=== PATIENT | male | born 1940 ===

== ENCOUNTER 2017-09-25 08:32 | Emergency (ER) | payer OTHER ==
[2017-09-25 08:42] VITALS: RESP 20; TEMP 98.2
[2017-09-25 09:34] LABS: BASO % 0.4 % (0.0-2.0); EOS # 0.2 K/uL (0.0-0.7); EOS % 3.8 % (0.0-4.0); HEMATOCRIT 37.9 % (35.0-51.0); LYMPH # 1.1 K/uL (1.0-4.3); LYMPH % 18.5 % (20.0-40.0); MEAN CELL VOLUME 91.2 fL (80.0-94.0); MEAN CORPUSCULAR HEMOGLOBIN 29.6 pg (27.0-31.0); MEAN CORPUSCULAR HGB CONC 32.4 g/dL (33.0-37.0); MEAN PLATELET VOLUME 7.5 fL (7.2-11.7); MONO # 0.5 K/uL (0.0-0.8); MONO % 8.4 % (0.0-10.0); RED CELL DISTRIBUTION WIDTH 13.1 % (11.5-14.5)
--- NOTE | 2017-09-25 09:38 | C.PDOC ---
History Of Present Illness 77 year old male, homeless, brought to ED by neighbor because pt is homeless and not take care of himself. As per neighbor, pt was incontinent of urine and feces. Pt complaints of large scrotal hernia. Pt has been seen multiple times in the past for similar symptoms. Denies fever, or any other complaints at this time. Time Seen by Provider: 09/25/17 09:10 Chief Complaint (Nursing): Male Genitourinary History Per: Patient History/Exam Limitations: no limitations Onset/Duration Of Symptoms: Days Current Symptoms Are (Timing): Still Present Severity: Mild Quality Of Discomfort: Aching Recent travel outside of the [place]: No Past Medical History Reviewed: Historical Data, Nursing Documentation, Vital Signs Vital Signs: Last Vital Signs Temp 98.2 F 09/25/17 11:45 Pulse 70 09/25/17 11:45 Resp 20 09/25/17 11:45 BP 140/75 09/25/17 11:45 Pulse Ox 95 09/25/17 16:53 - Medical History PMH: Denies: Diabetes, HIV, HTN, Chronic Kidney Disease, Seizures, Sexually Transmitted Disease - [facility] Procedures DETOXIFICATION SERVICES FOR SUBSTANCE ABUSE TREATMENT (07/27/16) Family History: States: Unknown Family Hx - Social History Hx Alcohol Use: Yes Hx Substance Use: No - Immunization History Hx Tetanus Toxoid Vaccination: No Hx Influenza Vaccination: No Hx Pneumococcal Vaccination: No Review Of Systems Except As Marked, All Systems Reviewed And Found Negative. Constitutional: Negative for: Fever, Chills Cardiovascular: Negative for: Chest Pain Respiratory: Negative for: Shortness of Breath Gastrointestinal: Negative for: Nausea, Vomiting, Abdominal Pain, Diarrhea Genitourinary: Positive for: Incontinence, Scrotal Pain. Negative for: Dysuria , Frequency, Hematuria, Penile Discharge Musculoskeletal: Negative for: Back Pain Physical Exam - Physical Exam Appears: Non-toxic, No Acute Distress Skin: Normal Color, Warm, Dry Head: Atraumatic, Normacephalic Eye(s): bilateral: Normal Inspection Oral Mucosa: Moist Chest: Symmetrical Cardiovascular: Rhythm Regular, No Murmur Respiratory: Normal Breath Sounds, No Rales, No Rhonchi, No Wheezing Gastrointestinal/Abdominal: Soft, No Tenderness Male Genital: Testicular Swelling (enlarged testicles), Other (bilateral scrotal hernia) Extremity: Normal ROM Neurological/Psych: Oriented x3, Normal Speech Gait: Steady ED Course And Treatment - Laboratory Results Result Diagrams: 09/25/17 09:28 09/25/17 09:28 Lab Interpretation: Normal O2 Sat by Pulse Oximetry: 95 Pulse Ox Interpretation: Normal - Other Rad No standard instances X-Ray: Viewed By Me, Read By Radiologist Interpretation: FINDINGS: CHEST: No evidence of acute infiltrate or effusion. Lung mosquera appear slightly overinflated. No effusion or apparent pneumothorax. ABDOMEN AND PELVIS: No gross free intraperitoneal air seen under the diaphragmatic surfaces. . No evidence of acute mechanical bowel obstruction. Moderate amount of stool seen throughout the large bowel consistent with fecal retention/constipation. . Hyperdense fecal material is present within the descending and sigmoid colon Note made of what appears to represent large left inguinal hernia containing distal descending/sigmoid colon. 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 There is a mild levoscoliosis centered at the L2-L3 level. IMPRESSION: No acute infiltrates. Findings consistent with constipation. There is also an apparent large left inguinal hernia. Note that this report was placed in PA review folder for followup Progress Note: Blood work, UA ordered and reviewed. Patient provided with information regarding homeless shelters. Discharged in stable condition. Advised to follow up with clinic for further evaluation Reassessment Condition: Unchanged Disposition Counseled Patient/Family Regarding: Studies Performed, Diagnosis, Need For Followup - Disposition Referrals: [facility] [Outside] [place] [facility] [employer] [Outside] Disposition: HOME/ ROUTINE Disposition Time: 11:45 Condition: STABLE Additional Instructions: Follow up at clinic for further evaluation Return to ED if any increase symptoms Call homeless shelters for availability Instructions: Weakness (ED) Forms: [employer] (Khmer) Print Language: MALAY - POA Present On Arrival: None - Clinical Impression Clinical Impression: Weakness, Homeless - 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 - Scribe Statement The provider has reviewed the documentation as recorded by the German Quinones All medical record entries made by the Patriciaibshellie were at my direction and personally dictated by me. I have reviewed the chart and agree that the record accurately reflects my personal performance of the history, physical exam, medical decision making, and the department course for this patient. I have also personally directed, reviewed, and agree with the discharge instructions and disposition.
[2017-09-25 09:57] LABS: ALB/GLOB RATIO 1.2 (1.0-2.1); ALCOHOL SERUM < 10 mg/dl (0-10); ALKALINE PHOSPHATASE 73 U/L (38-126); ALT/SGPT 36 U/L (21-72); AST/SGOT 20 U/L (17-59); BILIRUBIN,TOTAL 0.7 mg/dL (0.2-1.3); BLOOD UREA NITROGEN 8 mg/dL (9-20); CALCIUM 7.9 mg/dl (8.6-10.4); CARBON DIOXIDE 32 mmol/L (22-30); CHLORIDE 102 mmol/L (98-107); GFR AFRICAN-AMERICAN > 60; GLUCOSE,RANDOM 101 mg/dL (75-110); POTASSIUM 3.7 mmol/L (3.6-5.2); SODIUM 137 mmol/L (132-148); TOTAL PROTEIN 6.4 g/dL (6.3-8.3)
--- NOTE | 2017-09-25 10:22 | RAD ---
PROCEDURE: Radiographs of the chest and abdomen (obstructive series) HISTORY: Abd Pain COMPARISON: No prior. TECHNIQUE: AP radiograph of the chest, with upright and supine radiographs of the abdomen. FINDINGS: CHEST: No evidence of acute infiltrate or effusion. Lung mosquera appear slightly overinflated. No effusion or apparent pneumothorax ABDOMEN AND PELVIS: No gross free intraperitoneal air seen under the diaphragmatic surfaces. . No evidence of acute mechanical bowel obstruction. Moderate amount of stool seen throughout the large bowel consistent with fecal retention/constipation. . Hyperdense fecal material is present within the descending and sigmoid colon Note made of what appears to represent large left inguinal hernia containing distal descending/sigmoid colon. 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 There is a mild levoscoliosis centered at the L2-L3 level. IMPRESSION: No acute infiltrates. Findings consistent with constipation. There is also an apparent large left inguinal hernia. Note that this report was placed in PA review folder for followup
[2017-09-25 10:27] LABS: RBC URINE 1 /hpf (0-3); URINE BILIRUBIN NEGATIVE (NEGATIVE); URINE BLOOD NEGATIVE (NEGATIVE); URINE COLOR Yellow (YELLOW); URINE GLUCOSE (UA) NORMAL (Normal); URINE KETONE NEGATIVE (NEGATIVE); URINE LEUKOCYTE ESTERASE NEG Leu/uL (Negative); URINE PROTEIN NEGATIVE (NEGATIVE); URINE UROBILINOGEN NORMAL mg/dL (0.2-1.0); WBC URINE 1 /hpf (0-5)
[2017-09-25 11:46] VITALS: BP 140/75; PULSE 70; O2SAT 95
== END 2017-09-25 11:50 | disposition home or self-care (01) ==
LOC: C.ER 08:32
DX: R53.1 Weakness (principal); Z59.0 Homelessness

== ENCOUNTER 2018-02-11 06:38 | Emergency (ER) | payer OTHER ==
[2018-02-11 06:38] VITALS: BMI 23.8
--- NOTE | 2018-02-11 08:06 | C.PDOC ---
History Of Present Illness 77 y/o male with Colostomy bag placed presents to ED with c/o back pain and pain at site of colostomy bag for 1 week. Patient is a known homeless and was seen at [facility] yesterday 3 times with same complaints. Patient also complains of painful bump on anus worse when sitting. Patient denies fever, cough, nausea, vomiting or any other complaints at this time. Time Seen by Provider: 02/11/18 07:31 Chief Complaint (Nursing): Abdominal Pain History Per: Patient, Work Order Clerk History/Exam Limitations: language barrier Onset/Duration Of Symptoms: Days Current Symptoms Are (Timing): Still Present Past Medical History Reviewed: Historical Data, Nursing Documentation, Vital Signs Vital Signs: Last Vital Signs Temp 98.0 F 02/11/18 07:22 Pulse 67 02/11/18 07:22 Resp 17 02/11/18 07:22 BP 111/55 L 02/11/18 07:22 Pulse Ox 96 02/11/18 09:54 - Medical History PMH: Benign Prostatic Hyperplasia Surgical History: No Surg Hx Other Surgeries: Colostomy bag and Mucus Fistula - [facility] Procedures BYPASS SIGMOID COLON TO CUTANEOUS, OPEN APPROACH (12/10/17) DETOXIFICATION SERVICES FOR SUBSTANCE ABUSE TREATMENT (07/27/16) DRAINAGE OF ANUS, OPEN APPROACH (12/10/17) DRAINAGE OF RECTUM, OPEN APPROACH (12/10/17) EXCISION OF SIGMOID COLON, ENDO, DIAGN (12/10/17) EXCISION OF SIGMOID COLON, OPEN APPROACH (12/10/17) INTRODUCE LOCAL ANESTH IN PERIPH NRV, PLEXI, PERC (12/10/17) REPAIR SIGMOID COLON, OPEN APPROACH (12/10/17) TRANSFUSE NONAUT RED BLOOD CELLS IN PERIPH VEIN, PERC (12/10/17) Family History: States: No Known Family Hx - Social History Hx Tobacco Use: No Hx Alcohol Use: No Hx Substance Use: No - Immunization History Hx Tetanus Toxoid Vaccination: No Hx Influenza Vaccination: No Hx Pneumococcal Vaccination: No Review Of Systems Except As Marked, All Systems Reviewed And Found Negative. Musculoskeletal: Positive for: Back Pain Physical Exam - Physical Exam Appears: Non-toxic Skin: Warm, Dry, No Rash Head: Atraumatic, Normacephalic Oral Mucosa: Moist Neck: Normal ROM, Supple Cardiovascular: Rhythm Regular Respiratory: Normal Breath Sounds, No Rales, No Rhonchi, No Wheezing Gastrointestinal/Abdominal: Soft, No Tenderness, No Guarding, No Rebound, Other (Colostomy bag and Mucus fistula drainning ) Rectal: No Hemorrhoids, Other (Growth on left side of rectum) Back: Other (Lypoma on right upper back. Parathoracic tenderness) Neurological/Psych: Oriented x3, Normal Speech, Normal Cognition ED Course And Treatment - Laboratory Results Result Diagrams: 02/11/18 08:03 02/11/18 08:03 ECG: Interpreted By Me, Viewed By Me ECG Rhythm: Sinus Rhythm Rate From EC (BPM) O2 Sat by Pulse Oximetry: 96 (RA) Medical Decision Making Medical Decision Making: Assessment: Back pain Progress: D/w medical surgical tech obtained further history and state grown on rectum is chronic Patient d/c with instructed f.u to clinic Disposition Counseled Patient/Family Regarding: Studies Performed, Diagnosis, Need For Followup, Rx Given - Disposition Referrals: [facility] [Outside] Disposition: HOME/ ROUTINE Disposition Time: 09:52 Condition: STABLE Additional Instructions: follow up with your doctor in 2 days call to make an appointment take pain medication as prescribed return to ER if symptoms worsens or progress Prescriptions: traMADol [Ultram] 50 mg PO TID PRN #10 tab PRN Reason: Pain, Moderate (4-7) Instructions: Upper Back Pain Forms: Gen Discharge Inst Serbian, [facility] (Serbian) - Clinical Impression Clinical Impression: Back pain - Scribe Statement The provider has reviewed the documentation as recorded by the Patriciaibshellie Altman All medical record entries made by the Scribe were at my direction and personally dictated by me. I have reviewed the chart and agree that the record accurately reflects my personal performance of the history, physical exam, medical decision making, and the department course for this patient. I have also personally directed, reviewed, and agree with the discharge instructions and disposition.
[2018-02-11 08:10] LABS: BASO # 0.1 K/uL (0.0-0.2); BASO % 0.8 % (0.0-2.0); EOS # 0.7 K/uL (0.0-0.7); EOS % 9.4 % (0.0-4.0); HEMOGLOBIN 10.5 g/dL (12.0-18.0); LYMPH # 1.2 K/uL (1.0-4.3); LYMPH % 17.8 % (20.0-40.0); MEAN CELL VOLUME 87.8 fL (80.0-94.0); MEAN CORPUSCULAR HEMOGLOBIN 29.5 pg (27.0-31.0); MEAN CORPUSCULAR HGB CONC 33.6 g/dL (33.0-37.0); MEAN PLATELET VOLUME 8.2 fL (7.2-11.7); MONO # 0.6 K/uL (0.0-0.8); MONO % 8.8 % (0.0-10.0); NEUT # 4.4 K/uL (1.8-7.0); NEUT % 63.2 % (50.0-75.0); RBC 3.56 Mil/uL (4.40-5.90); RED CELL DISTRIBUTION WIDTH 18.3 % (11.5-14.5)
[2018-02-11 08:16] LABS: SQUAMOUS EPITHIAL < 1 /hpf (0-5); URINE BILIRUBIN NEGATIVE (NEGATIVE); URINE BLOOD NEGATIVE (NEGATIVE); URINE CLARITY Clear (Clear); URINE COLOR Yellow (YELLOW); URINE GLUCOSE (UA) NORMAL (Normal); URINE LEUKOCYTE ESTERASE NEG Leu/uL (Negative); URINE PROTEIN NEGATIVE (NEGATIVE); URINE UROBILINOGEN NORMAL mg/dL (0.2-1.0)
[2018-02-11 08:24] LABS: ALB/GLOB RATIO 0.9 (1.0-2.1); ALBUMIN 3.2 g/dL (3.5-5.0); ALT/SGPT 15 U/L (21-72); AST/SGOT 17 U/L (17-59); BLOOD UREA NITROGEN 12 mg/dL (9-20); CALCIUM 8.1 mg/dl (8.6-10.4); GFR AFRICAN-AMERICAN > 60; GFR NON-AFRICAN AMERICAN > 60
[2018-02-11 08:36] LABS: B-TYPE NATRIURETIC PEPTIDE 211 pg/mL (0-900)
--- NOTE | 2018-02-11 09:48 | RAD ---
Chest x-ray two views History: Chest pain. Comparison: 09/05/2017 Findings: Biapical pleural thickening with upper lobe granulomatous changes. Scattered nodular densities seen at the right lung apex, right lung base and left lung base. Correlation with chest CT may be helpful. Diffuse increased interstitial lung markings. Tortuous ectatic aorta. Cardiomegaly. Degenerative changes in the spine and shoulders. Deformities of several right lateral ribs. Impression: Biapical pleural thickening with upper lobe granulomatous changes. Scattered nodular densities seen at the right lung apex, right lung base and left lung base. Correlation with chest CT may be helpful. Diffuse increased interstitial lung markings. Tortuous ectatic aorta. Cardiomegaly. Degenerative changes in the spine and shoulders. Deformities of several right lateral ribs.
[2018-02-11 10:44] VITALS: BP 144/76; PULSE 77; RESP 20; TEMP 98.3; O2SAT 98
--- NOTE | 2018-02-12 23:21 | CARD ---
APPROVED REPORT EKG Measurement Heart [id number] <Conclusion> Normal sinus rhythm Normal ECG
== END 2018-02-11 10:30 | disposition home or self-care (01) ==
LOC: C.ER 06:38
DX: M54.9 Dorsalgia, unspecified (principal)